=== PATIENT | male | born 1960 | race Caucasian/White ===

== ENCOUNTER 2025-05-19 20:14 | Inpatient (IN) | payer OTHER, MEDICARE ==
[~2025-05-19] VITALS: Ht 165.1 cm; Wt 56.4 kg
[2025-05-19 21:19] LABS: HEMATOCRIT. 27.9 % (42.0-52.0); HEMOGLOBIN. 8.1 g/dL (14.0-18.0); MEAN PLATELET VOLUME 9.2 fl (7.4-10.4); PLATELET 129 x1000/uL (130-400); RED BLOOD CELL COUNT 4.07 mill/uL (4.7-6.1); RED CELL DISTRIBUTION WIDTH 22.7 % (11.6-14.6)
[2025-05-19 21:24] LABS: INR 1.6
[2025-05-19 21:31] LABS: CREATININE 0.9 mg/dL (0.6-1.3)
[2025-05-19 21:32] LABS: TROPONIN I HIGH SENSITIVITY 19 ng/L (3.0-53); UREA NITROGEN BLOOD 20 mg/dL (9-23)
[2025-05-19 21:33] LABS: ASPARTATE AMINOTRANSFERASE 41 IU/L (<34); BILIRUBIN DIRECT 0.9 mg/dL (<=3.0)
[2025-05-19 21:34] LABS: BILIRUBIN TOTAL 1.8 mg/dL (0.1-1.0); PROTEIN TOTAL 7.1 g/dL (6.0-8.3)
[2025-05-19 21:53] LABS: EOSINOPHILS % MANUAL 2.0 % (0.0-5.0); LYMPHOCYTES % MANUAL 21.0 % (20.0-50.0); MONOCYTES % MANUAL 7.0 % (2.0-8.0); NEUTROPHILS % MANUAL 70.0 % (45.0-75.0); PLATELET ESTIMATE SLIGHTLY DECREASED
[2025-05-20 00:36] VITALS: BP 136/87; PULSE 95; RESP 15; TEMP 36.4; O2SAT 96
[2025-05-20 01:12] VITALS: BP 128/92; PULSE 90; RESP 14; TEMP 36.5848
[2025-05-20 08:00] VITALS: BP 131/92; PULSE 88; RESP 18; TEMP 36.5; O2SAT 98
[2025-05-20] MEDS ORDERED: LIDOCAINE HCL 1% 10 MG/ML 10ML VIAL ONE (09:09)
[2025-05-20 09:10] LABS: CLARITY URINE CLOUDY (CLEAR); COLOR URINE DARK YELLOW (YELLOW); GLUCOSE URINE NEGATIVE (NEGATIVE); KETONES URINE TRACE (NEGATIVE); LEUKOCYTE ESTERASE URINE 1+ (NEGATIVE); NITRITE URINE POSITIVE (NEGATIVE); OCCULT BLOOD URINE 2+ (NEGATIVE); PH URINE 5.5 (4.5-8.0); PROTEIN URINE 1+ (NEGATIVE); SPECIFIC GRAVITY URINE 1.031 (1.005-1.030); UROBILINOGEN URINE 1.0 E.U./dL (0.2-1.0)
[2025-05-20 10:03] LABS: CALCIUM OXALATE CRYSTALS URINE 1+ /lpf; SQUAMOUS EPITHELIAL CELL URINE 1+ /lpf (RARE/1+)
[2025-05-20 10:04] LABS: MUCUS URINE 1+ /lpf (NONE/TRACE)
[2025-05-20 10:05] LABS: BACTERIA URINE 4+
[2025-05-20 10:08] LABS: RBC URINE 0-2 /hpf (0-2)
[2025-05-20 12:00] VITALS: BP 122/78; PULSE 81; RESP 18; TEMP 36.5; O2SAT 100
[2025-05-20] MEDS ORDERED: ONDANSETRON HCL 4MG/2ML INJ IV PRN (12:30)
[2025-05-20] MEDS ORDERED: IPRATROPIUM/ALBUTEROL 0.5-3(2.5)MG/3ML NEB HHN PRN (12:30)
[2025-05-20] MEDS ORDERED: CLONIDINE 0.1MG TABLET PO PRN (12:30)
[2025-05-20] MEDS ORDERED: DOCUSATE SODIUM 100MG CAPSULE PO PRN (12:30)
[2025-05-20] MEDS ORDERED: ACETAMINOPHEN 325MG TABLET PO PRN (12:30)
[2025-05-20 13:09] LABS: BASOPHILS % 1.2 % (0.0-2.0); EOSINOPHILS % 1.5 % (0.0-5.0); HEMATOCRIT. 28.0 % (42.0-52.0); HEMOGLOBIN. 7.9 g/dL (14.0-18.0); LYMPHOCYTES % 31.7 % (20.0-50.0); MEAN PLATELET VOLUME 9.4 fl (7.4-10.4); MONOCYTES % 7.5 % (2.0-8.0); NEUTROPHILS % 58.1 % (40.0-76.0); PLATELET 108 x1000/uL (130-400); RED BLOOD CELL COUNT 4.01 mill/uL (4.7-6.1); RED CELL DISTRIBUTION WIDTH 22.7 % (11.6-14.6)
[2025-05-20 13:31] LABS: INR 1.6
[2025-05-20] MEDS: OXYCODONE HCL/ACETAMINOPHEN 5/325MG TABLET PO PRN (13:51)
[2025-05-20 14:40] LABS: BODY FLUID RBC 82 /cu mm (0-2000); BODY FLUID WBC 29 /cu mm (0-200)
[2025-05-20 15:54] VITALS: BP 104/73; PULSE 82; RESP 13; TEMP 36.6; O2SAT 98
[2025-05-20 19:51] LABS: *AMPHETAMINES SCREEN URINE NEGATIVE (NEGATIVE)
[2025-05-20 19:52] LABS: *BARBITURATES SCREEN URINE NEGATIVE (NEGATIVE); *BENZODIAZEPINES SCREEN URINE NEGATIVE (NEGATIVE); *COCAINE SCREEN URINE NEGATIVE (NEGATIVE); CANNABINOID URINE SCREEN PRESUMPTIVE POSITIVE (NEGATIVE); ECSTASY MDMA SCREEN URINE NEGATIVE (NEGATIVE); METHADONE URINE SCREEN NEGATIVE (NEGATIVE); OPIATES URINE SCREEN NEGATIVE (NEGATIVE); PHENCYCLIDINE URINE SCREEN NEGATIVE (NEGATIVE)
[2025-05-20 20:00] VITALS: BP 115/70; PULSE 89; RESP 15; TEMP 36.9; O2SAT 97
[2025-05-20] MEDS: CARVEDILOL 3.125 MG TABLET PO SCH (21:40)
[2025-05-21] VITALS (7 sets, daily range): BP systolic 94–103; BP diastolic 61–78; PULSE 66–85; RESP 10–18; TEMP 36.4–36.8; O2SAT 96–100
[2025-05-21 07:30] LABS: CREATININE 0.7 mg/dL (0.6-1.3); UREA NITROGEN BLOOD 21 mg/dL (9-23)
[2025-05-21] MEDS ORDERED: SPIR25TA MT (12:33)
[2025-05-21] MEDS ORDERED: COR3 PO (12:33)
[2025-05-22] VITALS: BP 97/65; PULSE 75; RESP 12; TEMP 36.6; O2SAT 100
[2025-05-22 04:00] VITALS: BP 63/65; PULSE 78; RESP 12; TEMP 36.6; O2SAT 99
[2025-05-22 08:00] VITALS: BP 90/63; PULSE 71; RESP 18; TEMP 36.6; O2SAT 99
[2025-05-22 11:06] LABS: BASOPHILS % 0.8 % (0.0-2.0); EOSINOPHILS % 1.5 % (0.0-5.0); HEMATOCRIT. 24.7 % (42.0-52.0); HEMOGLOBIN. 7.3 g/dL (14.0-18.0); LYMPHOCYTES % 29.0 % (20.0-50.0); MEAN PLATELET VOLUME 9.4 fl (7.4-10.4); MONOCYTES % 8.8 % (2.0-8.0); NEUTROPHILS % 59.9 % (40.0-76.0); PLATELET 111 x1000/uL (130-400); RED BLOOD CELL COUNT 3.65 mill/uL (4.7-6.1); RED CELL DISTRIBUTION WIDTH 22.3 % (11.6-14.6)
[2025-05-22 11:22] LABS: CREATININE 0.8 mg/dL (0.6-1.3)
[2025-05-22 11:23] LABS: UREA NITROGEN BLOOD 24 mg/dL (9-23)
[2025-05-22 11:24] LABS: ASPARTATE AMINOTRANSFERASE 36 IU/L (<34)
[2025-05-22 11:25] LABS: BILIRUBIN DIRECT 0.6 mg/dL (<=3.0); BILIRUBIN TOTAL 1.3 mg/dL (0.1-1.0); PHOSPHORUS 2.6 mg/dL (2.5-4.9)
[2025-05-22 11:50] LABS: INR 1.6
[2025-05-22 11:52] LABS: ADD RBC MORPHOLOGY NO
[2025-05-22 12:00] VITALS: BP 82/68; PULSE 73; RESP 13; TEMP 36.3; O2SAT 97
[2025-05-22 12:15] LABS: PROTEIN TOTAL 5.1 g/dL (6.0-8.3)
[2025-05-22] MEDS: CEFTRIAXONE 1GM/50ML 50 ML IV SCH (12:32)
[2025-05-22] MEDS ORDERED: NALOXONE HCL 0.4MG/ML VIAL IV PRN (14:15)
[2025-05-22 16:00] VITALS: BP 96/64; PULSE 67; RESP 16; TEMP 36.6; O2SAT 100
[2025-05-22] MEDS: ALBUMIN HUMAN 25GM/100ML (25%) IV NR (17:45)
[2025-05-22 20:00] VITALS: BP 85/64; PULSE 64; RESP 15; TEMP 36.8; O2SAT 100
[2025-05-23] VITALS: BP 95/67; PULSE 66; RESP 17; TEMP 36.7; O2SAT 98
[2025-05-23 04:00] VITALS: BP 106/71; PULSE 68; RESP 16; TEMP 36.3; O2SAT 97
[2025-05-23 06:40] LABS: BASOPHILS % 0.8 % (0.0-2.0); EOSINOPHILS % 2.0 % (0.0-5.0); HEMATOCRIT. 27.2 % (42.0-52.0); HEMOGLOBIN. 8.1 g/dL (14.0-18.0); LYMPHOCYTES % 28.5 % (20.0-50.0); MEAN PLATELET VOLUME 9.1 fl (7.4-10.4); MONOCYTES % 10.3 % (2.0-8.0); NEUTROPHILS % 58.4 % (40.0-76.0); PLATELET 116 x1000/uL (130-400); RED BLOOD CELL COUNT 3.93 mill/uL (4.7-6.1); RED CELL DISTRIBUTION WIDTH 22.3 % (11.6-14.6)
[2025-05-23 07:07] LABS: CREATININE 0.7 mg/dL (0.6-1.3); UREA NITROGEN BLOOD 22 mg/dL (9-23)
[2025-05-23 08:00] VITALS: BP 75/57; PULSE 69; RESP 12; TEMP 36.5; O2SAT 95
[2025-05-23] MEDS: MIDODRINE HCL 5MG TABLET PO SCH (09:42)
[2025-05-23 12:00] VITALS: BP 107/64; PULSE 57; RESP 14; TEMP 36.4; O2SAT 95
[2025-05-23 16:00] VITALS: BP 112/71; PULSE 56; RESP 10; TEMP 36.4; O2SAT 100
[2025-05-23 20:00] VITALS: BP 115/72; PULSE 68; RESP 12; TEMP 36.7; O2SAT 100
[2025-05-24] VITALS: BP 111/82; PULSE 73; RESP 16; TEMP 36.7; O2SAT 100
[2025-05-24 04:00] VITALS: BP 103/88; PULSE 73; RESP 15; TEMP 36.8; O2SAT 97
[2025-05-24 08:00] VITALS: BP 91/68; PULSE 73; RESP 15; TEMP 36.6; O2SAT 96
[2025-05-24 12:00] VITALS: BP 98/41; PULSE 69; RESP 12; TEMP 36.8; O2SAT 100
[2025-05-24] MEDS: FUROSEMIDE 40MG/4ML VIAL IVP SCH (13:32)
[2025-05-24 16:00] VITALS: BP 111/46; PULSE 73; RESP 16; TEMP 36.9; O2SAT 99
[2025-05-24] MEDS: ALBUMIN HUMAN 25GM/100ML (25%) IV SCH (16:34)
[2025-05-24] MEDS: SODIUM CHLORIDE 0.9% 250 ML IV ONE (16:41)
[2025-05-24] MEDS: PHYTONADIONE 10 MG in DEXTROSE 5% WATER 49 ML IV NR (18:05)
[2025-05-24] MEDS ORDERED: IOHEXOL-300 100 ML BOTTLE ONE (19:53)
[2025-05-24 20:00] VITALS: BP 101/68; PULSE 70; RESP 14; TEMP 36.8; O2SAT 97
[2025-05-25] VITALS: BP 106/77; PULSE 77; RESP 15; TEMP 36.7; O2SAT 98
[2025-05-25 04:00] VITALS: BP 107/70; PULSE 79; RESP 15; TEMP 36.8; O2SAT 98
[2025-05-25 06:57] LABS: BASOPHILS % 0.8 % (0.0-2.0); EOSINOPHILS % 2.0 % (0.0-5.0); HEMATOCRIT. 26.6 % (42.0-52.0); HEMOGLOBIN. 7.7 g/dL (14.0-18.0); LYMPHOCYTES % 33.1 % (20.0-50.0); MEAN PLATELET VOLUME 9.3 fl (7.4-10.4); MONOCYTES % 12.2 % (2.0-8.0); NEUTROPHILS % 51.9 % (40.0-76.0); PLATELET 105 x1000/uL (130-400); RED BLOOD CELL COUNT 3.75 mill/uL (4.7-6.1); RED CELL DISTRIBUTION WIDTH 23.1 % (11.6-14.6)
[2025-05-25 07:08] LABS: CREATININE 0.8 mg/dL (0.6-1.3); UREA NITROGEN BLOOD 23 mg/dL (9-23)
[2025-05-25 07:10] LABS: BILIRUBIN TOTAL 1.7 mg/dL (0.1-1.0)
[2025-05-25 07:11] LABS: ADD RBC MORPHOLOGY NO
[2025-05-25 07:13] LABS: FOLIC ACID (FOLATE) SERUM 5.67 ng/mL (>5.38); VITAMIN B12 SERUM 1587 pg/mL (211-911)
[2025-05-25 07:15] LABS: INR 1.4
[2025-05-25 08:00] VITALS: BP 99/79; PULSE 76; RESP 14; TEMP 36.8; O2SAT 100
[2025-05-25 08:27] LABS: HEPATITIS C AB REACTIVE (Pos) (Negative)
[2025-05-25] MEDS ORDERED: SODIUM BICARBONATE 4.2% 2.5MEQ/5ML VIAL IV ONE (08:33)
[2025-05-25] MEDS ORDERED: LIDOCAINE HCL 1% 10 MG/ML 10ML VIAL ONE (08:33)
[2025-05-25 12:00] VITALS: BP 120/73; PULSE 74; RESP 11; TEMP 36.4; O2SAT 100
[2025-05-25] MEDS ORDERED: PHYTONADIONE 10MG/ML INJ SUBCUT NR (13:00)
[2025-05-25] MEDS: PHYTONADIONE 10MG/ML INJ SUBCUT NR (15:42)
[2025-05-25] MEDS: ALBUMIN HUMAN 25GM/100ML (25%) IV NR (15:51)
[2025-05-25] MEDS: ACETAMINOPHEN 325MG TABLET PO PRN (15:53)
[2025-05-25 16:00] VITALS: BP 109/76; PULSE 76; RESP 17; TEMP 36.6; O2SAT 99
[2025-05-25] MEDS: VANCOMYCIN 1.25GM/250ML 250 ML IV SCH (16:48)
[2025-05-25 20:00] VITALS: BP 95/66; PULSE 72; RESP 15; TEMP 36.7; O2SAT 97
[2025-05-26] VITALS (8 sets, daily range): BP systolic 92–107; BP diastolic 67–77; PULSE 68–85; RESP 13–16; TEMP 36.4–36.8; O2SAT 97–100
[2025-05-26] MEDS: VANCOMYCIN 750MG/150ML (BAXTER) IV SCH (05:53)
[2025-05-26] MEDS ORDERED: MIDO5TAB4 PO (10:09)
== END 2025-05-26 21:45 | disposition home or self-care (01) | DRG 433 ==
LOC: ER 20:14 → 3WST 23:26 → EDBEDREQTM 23:29 → EDBEDREQ 23:29 → EDBEDREQSVC 23:29 → ENRESERV 23:42
PROVIDERS: ADMIT Internal Medicine; ATTEND Internal Medicine
PROC: 0W9G3ZZ Drainage of Peritoneal Cavity, Percutaneous Approach (ICD-10-PCS; principal; 2025-05-20)
PROC: 0W9G30Z Drainage of Peritoneal Cavity with Drainage Device, Percutaneous Approach (ICD-10-PCS; 2025-05-25)
DX: K70.31 Alcoholic cirrhosis of liver with ascites (principal); D68.9 Coagulation defect, unspecified; N39.0 Urinary tract infection, site not specified; D50.9 Iron deficiency anemia, unspecified; D69.6 Thrombocytopenia, unspecified; I10 Essential (primary) hypertension; F41.9 Anxiety disorder, unspecified; E80.6 Other disorders of bilirubin metabolism; Z55.6 Problems related to health literacy
CPT/HCPCS: 36415; 49083; 71045; 74177; 80048; 80076; 80305; 81003; 82105; 82247; 82607; 82728; 82746; 83036; 83540; 83550; 83735; 83880; 84100; 84145; 84207; 84484; 85025; 85044; 86705; 86850; 86900; 87077; 87186; 87340; 93005; 97162; 97535; 99291; A4606; J0696; J1938; J2003; J3373; J3430; J3490; J7060; P9047; Q9967